=== PATIENT | male | born 1985 | race Caucasian/White ===

== ENCOUNTER → 2020-02-27 | Outpatient (CLI) | payer OTHER ==
[~2020-02-27] MED LIST: AMBIEN10 MG PO; CRESTOR40 MG PO; LAMICTAL200 MG PO; TRILIPIX45 M1 PO
== END | disposition home or self-care (01) ==
LOC: COVID19 00:28
PROVIDERS: ATTEND Family Medicine
DX: Z20.828 Contact with and (suspected) exposure to other viral communicable diseases (principal)